=== PATIENT | male | born 1995 | race Caucasian/White ===

== ENCOUNTER 2023-06-26 19:41 | Emergency (ER) | payer OTHER ==
[2023-06-26] MEDS ORDERED: Fluorescein Opthalmic Strip ONE (19:53)
[2023-06-26] MEDS ORDERED: Proparacaine 0.5% Opth 15 ML BOT ONE (19:54)
[2023-06-26] MEDS ORDERED: Erythromycin Base 0.5% Oint 1 GM TUBE L EYE SCH (20:30)
== END 2023-06-26 20:30 | disposition home or self-care (01) ==
LOC: CSHERS 19:41
DX: T15.12XA Foreign body in conjunctival sac, left eye, initial encounter (principal); Z79.899 Other long term (current) drug therapy
CPT/HCPCS: 99283

== ENCOUNTER 2023-08-15 15:54 | Emergency (ER) | payer OTHER ==
[2023-08-15] MEDS ORDERED: Famotidine/PF 20 mg/2ml Vial ONE (17:01)
[2023-08-15] MEDS ORDERED: Ondansetron PF 4 MG/2 ML Vial ONE (17:01)
[2023-08-15 17:15] LABS: #Eosinphils 0.1 10x3/uL (0.0-0.5); #Monocytes 0.7 10x3/uL (0.0-1.1); %Basophils 0.2 % (0.0-2.0); %Eosinophils 0.6 % (0.0-6.0); %Lymphocytes 17.3 % (18.0-47.0); %Monocytes 6.1 % (0.0-10.0); %Neutrophils 75.6 % (40.0-75.0); Hematocrit 44.5 % (38.8-50.0); Hemoglobin 15.2 g/dL (13.5-17.5); Mean Corpuscular HGB CONC 34.2 g/dL (32.0-36.0); Mean Corpuscular Volume 84.9 fl (81.2-95.1); Mean Platelet Volume 10.6 fl (7.4-10.4); Platelet Count 236 10x3/uL (150-450); RBC Distribution Width 12.7 % (11.5-14.5); Red Blood Cell (RBC) Count 5.24 10x6/uL (4.32-5.72); White Blood Cell (WBC) Count 11.8 10x3/uL (3.5-10.5)
[2023-08-15 17:28] LABS: ALT (SGPT) 44 U/L (8-55); AST (SGOT) 24 U/L (5-34); Albumin 4.3 g/dL (3.5-5.0); Alkaline Phosphatase 117 U/L (40-110); Anion Gap 17 mmol/L (10-20); BUN (Urea Nitrogen) 13 mg/dL (8.9-20.6); Bilirubin, Total 0.6 mg/dL (0.2-1.2); Calc. Creatinine Clearance 0 mL/min (70-130); Calcium 9.3 mg/dL (7.8-10.44); Carbon Dioxide 22 mmol/L (22-29); Chloride 105 mmol/L (98-107); Estimated GFR 110; Globulin 3.1 g/dL (2.4-3.5); Glucose 79 mg/dL (70-105); Lipase 12 U/L (8-78); Potassium 4.1 mmol/L (3.5-5.1); Protein, Total 7.4 g/dL (6.0-8.3); Sodium 140 mmol/L (136-145)
[2023-08-15 17:32] LABS: Troponin I 0.011 ng/mL (< 0.028)
== END 2023-08-15 18:29 | disposition home or self-care (01) ==
LOC: CSHERS 15:54
DX: R11.2 Nausea with vomiting, unspecified (principal); K21.9 Gastro-esophageal reflux disease without esophagitis
CPT/HCPCS: 36415; 80053; 83690; 83735; 84484; 85025; 86850; 86900; 86901; 96374; 96375; J2405; S0028

== ENCOUNTER 2024-08-05 19:08 | Emergency (ER) | payer OTHER ==
[2024-08-05 19:36] LABS: #Basophils 0.02 10x3/uL (0.0-0.2); #Monocytes 1.34 10x3/uL (0.0-1.1); #Neutrophils 15.41 10x3/uL (1.5-8.4); %Basophils 0.1 % (0.0-2.0); %Lymphocytes 9.8 % (18.0-47.0); %Monocytes 7.2 % (0.0-10.0); %Neutrophils 82.4 % (40.0-75.0); Hematocrit 49.1 % (38.8-50.0); Hemoglobin 15.9 g/dL (13.5-17.5); Mean Corpuscular HGB CONC 32.4 g/dL (32.0-36.0); Mean Corpuscular Volume 83.5 fL (81.2-95.1); Mean Platelet Volume 10.7 fL (7.4-10.4); Platelet Count 303 10x3/uL (150-450); RBC Distribution Width 13.2 % (11.5-14.5); Red Blood Cell (RBC) Count 5.88 10x6/uL (4.32-5.72); White Blood Cell (WBC) Count 18.7 10x3/uL (3.5-10.5)
[2024-08-05 19:47] LABS: ALT (SGPT) 48 U/L (8-55); AST (SGOT) 25 U/L (5-34); Albumin 3.8 g/dL (3.5-5.0); Alkaline Phosphatase 113 U/L (40-110); Anion Gap 19 mmol/L (10-20); BUN (Urea Nitrogen) 14 mg/dL (8.9-20.6); Bilirubin, Total 1.8 mg/dL (0.2-1.2); Calc. Creatinine Clearance 0 mL/min (70-130); Calcium 10.7 mg/dL (7.8-10.44); Carbon Dioxide 22 mmol/L (22-29); Chloride 102 mmol/L (98-107); Estimated GFR 97; Globulin 4.7 g/dL (2.4-3.5); Glucose 146 mg/dL (70-105); Protein, Total 8.5 g/dL (6.0-8.3); Sodium 139 mmol/L (136-145)
[2024-08-05] MEDS ORDERED: Morphine 4 MG/ML VIAL ONE ×2 (19:47→22:49)
[2024-08-05] MEDS ORDERED: Piperacillin/Tazobactam 4.5 GM VIAL ONE (19:48)
[2024-08-05] MEDS ORDERED: Ketorolac Tromethamine 30 MG (1 mL) VIAL ONE (19:48)
[2024-08-05 20:16] LABS: Actual Bicarbonate (HCO3v) 20.4 mEq/L (22-28); Analyzer IN Cardio CS ER; Base Excess -1.4 mEq/L (-2 - +2); Calcium, Ionized (venous) 1.14 mmol/L (1.16-1.32); Chloride (VBG) 101 mmol/L (98-106); Critical Notified By: CP.PH; Hematocrit-VBG 50 % (42.0-52.0); Potassium (VBG) 4.09 mmol/L (3.70-5.30); Puncture Site Other Site; Sodium 141 mmol/L (133-146); pH (venous) 7.478 (7.32-7.43)
[2024-08-05] MEDS ORDERED: Vancomycin 1 GM VIAL ONE (21:32)
[2024-08-05 22:23] LABS: Bilirubin 1+ (Negative); Blood, Urine Negative (Negative); Clarity Clear (Clear); Glucose, Urine (Dipstick) Normal (Negative); Ketone, Urine 15 mg/dL (Negative); Leukocyte 25 (Negative); Nitrite Positive (Negative); Protein, Urine (Dipstick) 100 mg/dl (Neg-Trace); Specific Gravity, Urine 1.015 (1.005-1.030)
[2024-08-05 22:46] LABS: CAUTI Indications for Culture Pelvic or flank pain; RBC/HPF 0-3 HPF (0-3); Squamous Epithelial 0-3 HPF (0-3)
[2024-08-05 22:47] LABS: Bacteria/HPF 2+ HPF (None Seen); Mucous/LPF 3+ LPF (<2+)
[2024-08-05] MEDS ORDERED: Lidocaine 1% (PF) 30 ML VIAL ONE (22:47)
[2024-08-05 22:50] LABS: Transitional Epithelial 0-3 HPF (None Seen); Urine Culture Reflex No No
== END 2024-08-06 00:39 | disposition short-term general hospital (02) ==
LOC: CSHERS 19:08
DX: A41.9 Sepsis, unspecified organism (principal); K44.9 Diaphragmatic hernia without obstruction or gangrene; J94.8 Other specified pleural conditions; D73.5 Infarction of spleen; F17.210 Nicotine dependence, cigarettes, uncomplicated; F17.290 Nicotine dependence, other tobacco product, uncomplicated
CPT/HCPCS: 36415; 71045; 71275; 74177; 80053; 81001; 82805; 83605; 84484; 85025; 87040; 93005; 96374; 96375; 96376; J1885; J2001; J2272; J2543; J3370

== ENCOUNTER 2024-09-10 18:40 | Emergency (ER) | payer OTHER ==
[~2024-09-10 18:40] MED LIST: Iopamidol 370 76% 100 ML VIAL ONE
[2024-09-10 20:14] LABS: #Basophils 0.01 10x3/uL (0.0-0.2); #Eosinophils 0.13 10x3/uL (0.0-0.5); #Monocytes 0.44 10x3/uL (0.0-1.1); #Neutrophils 4.27 10x3/uL (1.5-8.4); %Basophils 0.2 % (0.0-2.0); %Eosinophils 2.1 % (0.0-6.0); %Lymphocytes 23.1 % (18.0-47.0); %Neutrophils 67.4 % (40.0-75.0); Hematocrit 37.8 % (38.8-50.0); Hemoglobin 11.4 g/dL (13.5-17.5); Mean Corpuscular HGB CONC 30.2 g/dL (32.0-36.0); Mean Corpuscular Hemoglobin 24.5 pg (27.0-33.0); Mean Corpuscular Volume 81.3 fL (81.2-95.1); Mean Platelet Volume 10.7 fL (7.4-10.4); Platelet Count 329 10x3/uL (150-450); RBC Distribution Width 13.6 % (11.5-14.5); Red Blood Cell (RBC) Count 4.65 10x6/uL (4.32-5.72); White Blood Cell (WBC) Count 6.3 10x3/uL (3.5-10.5)
[2024-09-10 20:19] LABS: ALT (SGPT) 59 U/L (8-55); AST (SGOT) 29 U/L (5-34); Albumin 3.4 g/dL (3.5-5.0); Alkaline Phosphatase 146 U/L (40-110); Anion Gap 15 mmol/L (10-20); BUN (Urea Nitrogen) 12 mg/dL (8.9-20.6); Bilirubin, Total 0.5 mg/dL (0.2-1.2); Calc. Creatinine Clearance 0 mL/min (70-130); Calcium 9.7 mg/dL (7.8-10.44); Carbon Dioxide 22 mmol/L (22-29); Chloride 106 mmol/L (98-107); Estimated GFR 122; Globulin 4.3 g/dL (2.4-3.5); Glucose 113 mg/dL (70-105); Lipase 20 U/L (8-78); Potassium 3.3 mmol/L (3.5-5.1); Protein, Total 7.7 g/dL (6.0-8.3); Sodium 140 mmol/L (136-145)
[2024-09-10 20:25] LABS: Troponin I Less than 0.010 ng/mL (< 0.028)
[2024-09-10] MEDS ORDERED: Cefepime 2 GM VIAL ONE (21:11)
[2024-09-10] MEDS ORDERED: fentaNYL 50 mcg/mL 1 mL Vial ONE (21:21)
[2024-09-10] MEDS ORDERED: Ketorolac Tromethamine 30 MG (1 mL) VIAL ONE (21:22)
[2024-09-10] MEDS ORDERED: Vancomycin 2.5 GM in Sodium Chloride 0.9% 500 ML IVPB ONE (21:30)
[2024-09-11] MEDS ORDERED: fentaNYL 50 mcg/mL 1 mL Vial ONE (00:01)
== END 2024-09-11 03:53 | disposition short-term general hospital (02) ==
LOC: CSHERS 18:40
DX: J86.9 Pyothorax without fistula (principal); J18.9 Pneumonia, unspecified organism; F17.210 Nicotine dependence, cigarettes, uncomplicated; F17.290 Nicotine dependence, other tobacco product, uncomplicated
CPT/HCPCS: 36415; 71045; 71275; 74177; 80053; 83605; 83690; 84484; 85025; 87040; 93005; 96365; 96366; 96367; 96375; 96376; J0692; J1885; J3010; J3370; J7030; Q9967

== ENCOUNTER 2024-11-08 17:43 | Emergency (ER) | payer OTHER ==
[2024-11-08] MEDS ORDERED: Ketorolac Tromethamine 30 MG (1 mL) VIAL ONE (18:19)
[2024-11-08 19:05] LABS: #Basophils 0.02 10x3/uL (0.0-0.2); #Eosinophils 0.13 10x3/uL (0.0-0.5); #Monocytes 0.47 10x3/uL (0.0-1.1); #Neutrophils 5.58 10x3/uL (1.5-8.4); %Basophils 0.3 % (0.0-2.0); %Eosinophils 1.6 % (0.0-6.0); %Lymphocytes 21.3 % (18.0-47.0); %Monocytes 5.9 % (0.0-10.0); %Neutrophils 70.6 % (40.0-75.0); Hematocrit 40.6 % (38.8-50.0); Hemoglobin 12.3 g/dL (13.5-17.5); Mean Corpuscular HGB CONC 30.3 g/dL (32.0-36.0); Mean Corpuscular Hemoglobin 22.7 pg (27.0-33.0); Mean Corpuscular Volume 74.9 fL (81.2-95.1); Mean Platelet Volume 11.1 fL (7.4-10.4); Platelet Count 329 10x3/uL (150-450); RBC Distribution Width 15.6 % (11.5-14.5); Red Blood Cell (RBC) Count 5.42 10x6/uL (4.32-5.72); White Blood Cell (WBC) Count 7.9 10x3/uL (3.5-10.5)
[2024-11-08 19:13] LABS: ALT (SGPT) 38 U/L (8-55); AST (SGOT) 24 U/L (5-34); Albumin 4.3 g/dL (3.5-5.0); Alkaline Phosphatase 131 U/L (40-110); Anion Gap 17 mmol/L (10-20); BUN (Urea Nitrogen) 10 mg/dL (8.9-20.6); Bilirubin, Total 0.5 mg/dL (0.2-1.2); Calc. Creatinine Clearance 0 mL/min (70-130); Calcium 9.7 mg/dL (7.8-10.44); Carbon Dioxide 19 mmol/L (22-29); Chloride 107 mmol/L (98-107); Estimated GFR 122; Globulin 3.5 g/dL (2.4-3.5); Glucose 97 mg/dL (70-105); Potassium 4.2 mmol/L (3.5-5.1); Protein, Total 7.8 g/dL (6.0-8.3); Sodium 139 mmol/L (136-145)
[2024-11-08 19:18] LABS: Troponin I Less than 0.010 ng/mL (< 0.028)
== END 2024-11-08 19:52 | disposition home or self-care (01) ==
LOC: CSHERS 17:43
DX: R07.81 Pleurodynia (principal); E78.5 Hyperlipidemia, unspecified; F17.210 Nicotine dependence, cigarettes, uncomplicated; F17.290 Nicotine dependence, other tobacco product, uncomplicated
CPT/HCPCS: 36415; 71045; 71275; 80053; 83605; 84484; 85025; 87040; 87077; 87149; 87186; 87428; 93005; 96374; J1885; Q9967

== ENCOUNTER 2024-11-12 11:28 | Emergency (ER) | payer OTHER ==
[2024-11-12] MEDS ORDERED: cefTRIAXone (ROCEPHIN) 1 GM VIAL ONE (11:48)
[2024-11-12 12:44] LABS: #Basophils Less than 0.03 10x3/uL (0.0-0.2); #Eosinophils 0.08 10x3/uL (0.0-0.5); #Monocytes 0.41 10x3/uL (0.0-1.1); #Neutrophils 5.06 10x3/uL (1.5-8.4); %Basophils 0.3 % (0.0-2.0); %Eosinophils 1.2 % (0.0-6.0); %Lymphocytes 17.8 % (18.0-47.0); %Neutrophils 74.4 % (40.0-75.0); Hematocrit 38.9 % (38.8-50.0); Hemoglobin 11.8 g/dL (13.5-17.5); Mean Corpuscular HGB CONC 30.3 g/dL (32.0-36.0); Mean Corpuscular Hemoglobin 23.1 pg (27.0-33.0); Mean Corpuscular Volume 76.3 fL (81.2-95.1); Mean Platelet Volume 11.3 fL (7.4-10.4); Platelet Count 265 10x3/uL (150-450); RBC Distribution Width 15.4 % (11.5-14.5)
[2024-11-12 13:06] LABS: ALT (SGPT) 36 U/L (8-55); AST (SGOT) 28 U/L (5-34); Albumin 3.7 g/dL (3.5-5.0); Alkaline Phosphatase 118 U/L (40-110); Anion Gap 12 mmol/L (10-20); BUN (Urea Nitrogen) 14 mg/dL (8.9-20.6); Bilirubin, Total 0.2 mg/dL (0.2-1.2); Calc. Creatinine Clearance 0 mL/min (70-130); Calcium 9.3 mg/dL (7.8-10.44); Carbon Dioxide 19 mmol/L (22-29); Chloride 110 mmol/L (98-107); Estimated GFR 124; Globulin 3.7 g/dL (2.4-3.5); Glucose 101 mg/dL (70-105); Protein, Total 7.4 g/dL (6.0-8.3); Sodium 137 mmol/L (136-145)
== END 2024-11-12 13:30 | disposition home or self-care (01) ==
LOC: CSHERS 11:28
DX: R79.89 Other specified abnormal findings of blood chemistry (principal); F17.290 Nicotine dependence, other tobacco product, uncomplicated; F17.210 Nicotine dependence, cigarettes, uncomplicated
CPT/HCPCS: 36415; 80053; 83605; 85025; 87040; 96365; J0696

== ENCOUNTER 2025-01-07 18:17 | Emergency (ER) | payer OTHER | END 2025-01-07 20:04 | LOC: CSHERS 18:17 | DX: Z13.30 Encounter for screening examination for mental health and behavioral disorders, unspecified (principal); Z55.0 Illiteracy and low-level literacy; Z87.891 Personal history of nicotine dependence | CPT/HCPCS: 99283 ==

== ENCOUNTER 2025-10-29 12:19 | Emergency (ER) | payer OTHER ==
[2025-10-29 14:24] LABS: #Basophils Less than 0.03 10x3/uL (0.0-0.2); #Eosinophils 0.04 10x3/uL (0.0-0.5); #Monocytes 0.68 10x3/uL (0.0-1.1); #Neutrophils 2.52 10x3/uL (1.5-8.4); %Basophils 0.3 % (0.0-2.0); %Eosinophils 1.0 % (0.0-6.0); %Lymphocytes 18.5 % (18.0-47.0); %Monocytes 17.0 % (0.0-10.0); %Neutrophils 62.9 % (40.0-75.0); Hematocrit 42.1 % (38.8-50.0); Hemoglobin 14.0 g/dL (13.5-17.5); Mean Corpuscular Hemoglobin 27.5 pg (27.0-33.0); Mean Corpuscular Volume 82.5 fL (81.2-95.1); Platelet Count 211 10x3/uL (150-450); Red Blood Cell (RBC) Count 5.10 10x6/uL (4.32-5.72); White Blood Cell (WBC) Count 4.00 10x3/uL (3.5-10.5)
[2025-10-29 14:39] LABS: ALT (SGPT) 92 U/L (Less than 45); AST (SGOT) 58 U/L (11-34); Albumin 4.1 g/dL (3.1-4.5); Alkaline Phosphatase 124 U/L (40-110); Anion Gap 15 mmol/L (10-20); BUN (Urea Nitrogen) 12 mg/dL (8.9-20.6); Bilirubin, Total 0.3 mg/dL (0.3-1.2); Calc. Creatinine Clearance 0 mL/min (70-130); Calcium 8.8 mg/dL (7.8-10.44); Carbon Dioxide 21 mmol/L (22-29); Chloride 107 mmol/L (98-107); Globulin 3.3 g/dL (2.4-3.5); Glucose 100 mg/dL (70-105); Potassium 4.2 mmol/L (3.5-5.1); Sodium 139 mmol/L (136-145)
[2025-10-29 14:43] LABS: Troponin I 0.015 ng/mL (< 0.028)
[2025-10-29] MEDS ORDERED: Acetaminophen 500 MG TAB ONE (15:02)
[2025-10-29] MEDS ORDERED: Ketorolac Tromethamine 30 MG (1 mL) VIAL ONE (15:02)
== END 2025-10-29 16:12 | disposition home or self-care (01) ==
LOC: CSHERS 12:19
DX: R07.9 Chest pain, unspecified (principal); R05.9 Cough, unspecified; Z55.6 Problems related to health literacy
CPT/HCPCS: 36415; 71046; 80053; 84484; 85025; 85379; 87428; 93005; 94640; 96372; J1885